=== PATIENT | female | born 1950 | race Caucasian/White ===

== ENCOUNTER → 2017-04-01 | Outpatient (CLI) | payer MEDICARE, BC ==
[~2017-04-01] MED LIST: BAYER ASPIRIN325 M1 PO; COUMADIN6 MG PO; HYDROCODON-ACE1 EAC7 PO; LOVENOX80 MG/0.8 INJ; NORCO 7.5-3251 EACH PO
--- NOTE | ~2017-04-01 | CT2 ---
[facility] A Service of [facility] RADIOLOGY TEXT RESULTS PATIENT: ASHANTI CHRISTIANSON LOCATION: [facility] : 51 UNIT #: [id number] AGE: [address]: Swapna Kline MD SEX: F ORDER DR: [id number] [facility]. [place], [place] [address] [id number] O MR#: [id number] Acc #: [id number] NAME: ASHANTI CHRISTIANSON : 1950 SEX: F STUDY DATE/TIME: 04/01/2017 15:00 UNIT: [facility] ROOM: STUDY DESCRIPTION: CT Abd and Pelv W Cont Attending Physician: Swapna Kline M.D. Referring Physician: Swapna Kline M.D. Ordering Physician: Swapna Kline M.D. Primary Care Physician: Swapna Kline M.D. MEDICAL IMAGING REPORT This report is preliminary unless electronic signature is present EXAM CT abdomen and pelvis with contrast INDICATIONS Abdominal mass. Periumbilical abdominal mass for the past 6-8 months. PROCEDURE Contrast-enhanced CT of the abdomen and pelvis. This CT exam was performed with one or more of the following radiation dose reduction techniques: automatic exposure control, adjustment of mA and/or kV according to patient size, and iterative reconstruction. COMPARISON 05/15/2008 FINDINGS Abdomen with contrast: Included lung bases are clear. Liver is normal in size and morphology. Severe hepatic steatosis. Spleen, kidneys, adrenal gland, pancreas unremarkable. Previous cholecystectomy. Bowel loops are nondilated. The area of palpable concern is marked with a gel capsule. Just inferior to this region in the subcutaneous tissues there is a 2.8 cm fat-containing umbilical hernia that appears to have a thin neck, approximately 3 mm. This hernia is located just above the umbilicus. Pelvis with contrast: Previous hysterectomy. No pelvic mass or fluid. No aggressive appearing bone lesion. IMPRESSION 1. Area of palpable concern correlates with a 2.8 cm fat-containing supraumbilical hernia. [facility] A Service of [facility] RADIOLOGY TEXT RESULTS PATIENT: ASHANTI CHRISTIANSON LOCATION: [facility] : 51 UNIT #: [id number] AGE: [address]: Swapna Kline MD SEX: F ORDER DR: 2. Significant hepatic steatosis. Dictated by... Donte Cook M.D. THIS IS AN ELECTRONICALLY VERIFIED REPORT Donte Cook M.D. at 04/02/2017 3:29 PM EED/to TD: 04/01/2017 19:16 JOB #: [id number] MEDICAL IMAGING REPORT Page 1 of 1 COPY
--- NOTE | ~2017-04-01 | BD1 ---
[facility] A Service of [facility] & [facility] RADIOLOGY TEXT RESULTS PATIENT: ASHANTI CHRISTIANSON LOCATION: [facility] : 51 UNIT #: [id number] AGE: [address]: Swapna Kline MD SEX: F ORDER DR: [id number] [facility] [address] [facility]. [place], [place] [address] [id number] O MR#: [id number] Acc #: [id number] NAME: ASHANTI CHRISTIANSON : 1950 SEX: F STUDY DATE/TIME: 04/01/2017 12:25 UNIT: [facility] ROOM: STUDY DESCRIPTION: BD Dexa Bone Dens 1+ Site Attending Physician: Swapna Kline M.D. Referring Physician: Swapna Kline M.D. Ordering Physician: Swapna Kline M.D. Primary Care Physician: Swapna Kline M.D. MEDICAL IMAGING REPORT This report is preliminary unless electronic signature is present EXAM DXA scan 04/01/2017 HISTORY Status post menopause with no hormone replacement therapy. Osteopenia. Removal of both ovaries. Fracture of right ankle in last 10 years. Smoking history for 20 years. FINDINGS Bone mineral density in the lumbar spine from L1 through L4 was 0.758 g/cm2 which is 2.6 standard deviations below the mean when compared to the young adult reference population which is characteristic of osteoporosis. This is 0.8 standard deviations below the mean when compared to the age-matched population. Bone mineral density in the left femoral neck was 0.694 gm/cm2 which is 1.4 standard deviations below the mean when compared to the young adult reference population which is characteristic of osteopenia. This is 0.2 standard deviations above the mean when compared to the age-matched population. IMPRESSION Bone mineral density in the lumbar spine characteristic of osteoporosis and within the left hip characteristic of osteopenia. Dictated by... Boston Wayne M.D. THIS IS AN ELECTRONICALLY VERIFIED REPORT Boston Wayne M.D. at 04/02/2017 10:18 AM ARI/mane TD: 04/01/2017 17:32 JOB #: [id number] [facility] A Service of [facility] RADIOLOGY TEXT RESULTS PATIENT: ASHANTI CHRISTIANSON LOCATION: [facility] : 51 UNIT #: [id number] AGE: [address]: Swapna Kline MD SEX: F ORDER DR: MEDICAL IMAGING REPORT Page 1 of 1 COPY
--- NOTE | ~2017-04-01 | MY29 ---
[facility] A Service of [facility] & [facility] RADIOLOGY TEXT RESULTS PATIENT: ASHANTI CHRISTIANSON LOCATION: [facility] : 51 UNIT #: [id number] AGE: [address]: Swapna Kline MD SEX: F ORDER DR: [id number] [facility]. [place], [place] [address] [id number] O MR#: [id number] Acc #: [id number] NAME: ASHANTI CHRISTIANSON : 1950 SEX: F STUDY DATE/TIME: 04/01/2017 12:23 UNIT: [facility] ROOM: STUDY DESCRIPTION: MY MAURICIO SCREENING W/ CAD BILAT Attending Physician: Swapna Kline M.D. Referring Physician: Swapna Kline M.D. Ordering Physician: Swapna Kline M.D. Primary Care Physician: Swapna Kline M.D. MEDICAL IMAGING REPORT This report is preliminary unless electronic signature is present EXAM Digital screening mammogram, 04/01/2017 HISTORY 66-year-old woman no risk elevation. Annual screening. COMPARISON 05/08/2009 FINDINGS Digital imaging of each breast was completed utilizing a two-view examination of each breast in craniocaudal and mediolateral-oblique projections. Review and interpretation of digital mammograms include a second review in conjunction with FDA-approved CAD device. There is a normal parenchymal presentation bilaterally consistent with the patient's age. There are no breast masses imaged and no parenchymal asymmetry is visualized. There are no suspicious microcalcifications and I see no focal architectural disturbance. IMPRESSION Negative screening digital mammogram. One-year followup recommended. Patients over the age of 40 are entered into a reminder system with target due date for the next mammogram. A result letter will also be sent to the patient. BIRADS: 1 Negative Dictated by... Eliezer Davey M.D. THIS IS AN ELECTRONICALLY VERIFIED REPORT Eliezer Davey M.D. at 04/02/2017 8:07 AM [facility] A Service of [facility] & [facility] RADIOLOGY TEXT RESULTS PATIENT: ASHANTI CHRISTIANSON LOCATION: [facility] : 51 UNIT #: [id number] AGE: [address]: Swapna Kline MD SEX: F ORDER DR: [place] TD: 04/01/2017 15:47 JOB #: [id number] MEDICAL IMAGING REPORT Page 1 of 1 COPY
[2017-04-01 14:45] LABS: POC - CREATININE 0.92 mg/dL (0.44-1.03); POC - GFR >60.0 mL/min (>60)
== END | disposition home or self-care (01) ==
LOC: CWCC 11:59
PROVIDERS: Family Medicine
DX: Z12.31 Encounter for screening mammogram for malignant neoplasm of breast (principal); N83.209 Unspecified ovarian cyst, unspecified side; K42.9 Umbilical hernia without obstruction or gangrene; K76.0 Fatty (change of) liver, not elsewhere classified; Z78.0 Asymptomatic menopausal state; M81.0 Age-related osteoporosis without current pathological fracture; M85.88 Other specified disorders of bone density and structure, other site
CPT/HCPCS: 74177; 77080; 82565; G0202; Q9967

== ENCOUNTER → 2017-04-14 | Outpatient (CLI) | payer MEDICARE, BC ==
--- NOTE | ~2017-04-14 | CT138 ---
[facility] A Service of [facility] RADIOLOGY TEXT RESULTS PATIENT: ASHANTI CHRISTIANSON LOCATION: [facility] : 52 UNIT #: [id number] AGE: [address]: Swapna Kline MD SEX: F ORDER DR: [id number] [place], [place] [address] [id number] O MR#: [id number] Acc #: [id number] NAME: ASHANTI CHRISTIANSON : 1950 SEX: F STUDY DATE/TIME: 04/14/2017 8:22 UNIT: [facility] ROOM: STUDY DESCRIPTION: CT Lung screening initial Attending Physician: Swapna Kline M.D. Referring Physician: Swapna Kline M.D. Ordering Physician: Swapna Kline M.D. Primary Care Physician: Swapna Kline M.D. MEDICAL IMAGING REPORT This report is preliminary unless electronic signature is present EXAM CT lung cancer screening. INDICATION Lung cancer screening. 40+ pack year smoking history. PROCEDURE Unenhanced low-dose CT of the chest performed per lung cancer screening protocol. CTDI of 2.6 mGy. Total DLP 99 mGy-cm. This CT exam was performed with one or more of the following radiation dose reduction techniques: automatic exposure control, adjustment of mA and/or kV according to patient size, and iterative reconstruction. COMPARISON None FINDINGS No suspicious pulmonary nodule. No pleural fluid or a pneumothorax. No adenopathy. Coronary artery calcification. Significant hepatic steatosis. No acute findings are seen in the included upper abdomen. No aggressive appearing bone lesion. IMPRESSION 1. No pulmonary nodules. 2. Lung-RADS category 1 negative. Per the ACR Lung-RADS recommendation, suggest patient continue with annual low-dose lung cancer screening. 3. Significant hepatic steatosis. Dictated by... [facility] A Service of [facility] & [facility] RADIOLOGY TEXT RESULTS PATIENT: ASHANTI CHRISTIANSON LOCATION: [facility] : 52 UNIT #: [id number] AGE: [address]: Swapna Kline MD SEX: F ORDER DR: Donte Cook M.D. THIS IS AN ELECTRONICALLY VERIFIED REPORT Donte Cook M.D. at 04/15/2017 7:09 AM LELO/estella TD: 04/14/2017 15:58 JOB #: [id number] MEDICAL IMAGING REPORT Page 1 of 1 COPY
== END | disposition home or self-care (01) ==
LOC: CCAT 07:30
DX: Z87.891 Personal history of nicotine dependence (principal)
CPT/HCPCS: G0297